=== PATIENT | female | born 1985 ===

== ENCOUNTER 2019-12-10 16:52 | Outpatient (REF) | payer SELFPAY | END 2019-12-10 16:53 | disposition home or self-care (01) | LOC: HO.LAB 16:52 | PROVIDERS: Visit Provider Internal Medicine | DX: Z20.828 Contact with and (suspected) exposure to other viral communicable diseases (principal) | CPT/HCPCS: 36415; 87635 ==

== ENCOUNTER 2020-03-31 16:24 | Outpatient (REF) | payer OTHER, SELFPAY | END 2020-03-31 16:25 | disposition home or self-care (01) | LOC: HO.LAB 16:24 | PROVIDERS: Visit Provider Internal Medicine | DX: Z20.822 Contact with and (suspected) exposure to COVID-19 (principal) | CPT/HCPCS: 36415; C9803; U0003 ==

== ENCOUNTER → 2022-03-18 09:58 | Outpatient (BNVA) | payer OTHER, SELFPAY | PROVIDERS: PCP Student in an Organized Health Care Education/Training Program; Visit Provider Psychiatry & Neurology Neurology | DX: G43.119 Migraine with aura, intractable, without status migrainosus (principal); G47.10 Hypersomnia, unspecified; M54.2 Cervicalgia; R06.83 Snoring | CPT/HCPCS: 99202 ==

== ENCOUNTER → 2022-04-01 13:56 | Outpatient (REF) | payer OTHER, SELFPAY | LOC: HO.SL 13:56 | PROVIDERS: Visit Provider Psychiatry & Neurology Neurology | DX: G47.10 Hypersomnia, unspecified (principal); R06.83 Snoring | CPT/HCPCS: 95806 ==

== ENCOUNTER 2022-04-20 16:04 | Outpatient (REF) | payer OTHER, SELFPAY ==
--- NOTE | ~2022-04-20 | MR_ITS ---
EXAMINATION: MRI OF THE BRAIN WITHOUT CONTRAST CLINICAL INFORMATION: 36-year-old with migraine with aura, intractable, without status migrainosus. COMPARISON: None. TECHNIQUE: Routine multiplanar, multisequence MR imaging of the brain was performed without IV contrast. FINDINGS: Brain Volume: Within normal limits within the limitations of qualitative assessment. Structural: Mild negative cisterna magna in the posterior fossa, normal variant. Brain and Meninges: DWI sequence demonstrates no restricted diffusion to suggest acute or subacute cerebral ischemia. The brain parenchyma is normal in morphology and signal intensity.?Stanley-white matter interface is preserved. No extra-axial fluid collections, space-occupying process or mass effect are identified. Gradient refocused imaging demonstrates no abnormal susceptibility-weighted signal loss to suggest hemorrhage, hemosiderin staining or abnormal mineralization. No extra-axial fluid collections, space-occupying process or mass effect. Ventricles and Subarachnoid Spaces: The ventricular system and subarachnoid spaces are within normal range; there is no hydrocephalus. Orbital Structures: The visualized orbital structures are grossly unremarkable within the limitations of the study. Vascular: Signal voids are noted in the visualized major intracranial vessels. Note is made of a 3 mm rounded signal void medial to the supraclinoid right internal carotid artery. Cannot exclude a small aneurysm at this location. Recommend MRA to further assess. Osseous Structures, Sinuses/Mastoids, Extracranial Soft Tissues: Unremarkable. MR/MR head/brain wo con IMPRESSION: 1. No acute intracranial process. No evidence for infarction, mass, extra-axial fluid collection, space-occupying process, mass effect or hydrocephalus and no definite brain parenchymal signal abnormalities. 2. Possible 3 mm right supraclinoid internal carotid artery aneurysm. Recommend MRA to further assess.
== END 2022-04-20 16:05 | disposition home or self-care (01) ==
LOC: HO.MRI 16:04
PROVIDERS: Visit Provider Nurse Practitioner Family
DX: G43.119 Migraine with aura, intractable, without status migrainosus (principal)
CPT/HCPCS: 70551

== ENCOUNTER → 2022-04-29 07:52 | Outpatient (BNVA) | payer OTHER, SELFPAY | PROVIDERS: Visit Provider Nurse Practitioner Family | DX: G43.119 Migraine with aura, intractable, without status migrainosus (principal); M54.2 Cervicalgia; G47.10 Hypersomnia, unspecified; R06.83 Snoring | CPT/HCPCS: 99212 ==

== ENCOUNTER → 2022-07-26 14:28 | Outpatient (BNVA) | payer OTHER, SELFPAY | PROVIDERS: Visit Provider Nurse Practitioner Family | DX: G47.10 Hypersomnia, unspecified (principal); R06.83 Snoring; G43.119 Migraine with aura, intractable, without status migrainosus; M54.2 Cervicalgia; Z79.899 Other long term (current) drug therapy | CPT/HCPCS: 99212 ==

== ENCOUNTER → 2022-10-01 21:28 | Outpatient (REF) | payer OTHER, SELFPAY | LOC: HO.SL 21:28 | PROVIDERS: Visit Provider Nurse Practitioner Family | DX: G43.119 Migraine with aura, intractable, without status migrainosus (principal); G47.10 Hypersomnia, unspecified; G47.9 Sleep disorder, unspecified; K21.9 Gastro-esophageal reflux disease without esophagitis; R06.83 Snoring | CPT/HCPCS: 95810 ==

== ENCOUNTER → 2022-10-01 21:34 | Outpatient (BNV) | payer OTHER, SELFPAY | PROVIDERS: Visit Provider Psychiatry & Neurology Neurology | DX: G47.9 Sleep disorder, unspecified (principal) | CPT/HCPCS: 95810 ==

== ENCOUNTER 2022-10-19 15:02 | Outpatient (REF) | payer OTHER, SELFPAY ==
--- NOTE | ~2022-10-19 | MR_ITS ---
EXAMINATION: MR ANGIOGRAPHY BRAIN WITHOUT CONTRAST CLINICAL INFORMATION: Question of a right internal carotid artery aneurysm. COMPARISON: Brain MRI dated 04/20/2022. TECHNIQUE: 3D yrqq-pt-gwmhbt MR angiography of the [place] acquired. Slightly limited study with motion artifacts. FINDINGS: The internal carotid arteries are normal in caliber bilaterally. 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 The [place] and MCA vasculature are normal. No aneurysm or vascular malformation is identified. The vertebrobasilar vessels are otherwise normal. The posterior cerebral arteries are widely patent. There is a new moderate right mastoid effusion partially visualized. MR/MR angio head wo con IMPRESSION: Slightly limited examination with motion artifacts. Otherwise, no identifiable aneurysm. 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 New moderate dependent right mastoid effusion.
== END 2022-10-19 15:03 | disposition home or self-care (01) ==
LOC: HO.MRI 15:02
PROVIDERS: PCP Nurse Practitioner Primary Care; Visit Provider Nurse Practitioner Family
DX: I67.1 Cerebral aneurysm, nonruptured (principal)
CPT/HCPCS: 70544

== ENCOUNTER 2022-11-11 15:01 | Outpatient (AMB) | payer MEDICAID, SELFPAY ==
--- NOTE | 2022-11-11 15:02 | MHC.OFFVIS ---
Intake Vital Signs 11/11/22 15:03 Height 5 ft 3 in Weight 132 lb 8 oz BMI 23.5 BP 110/78 Blood Pressure Location Rt brachial Position Sitting Pulse 76 Pulse Source Pulse Oximeter Pulse Oximetry (%) 99 Oxygen Delivery Method Room Air Intake Visit Reasons: 3 mo f/u Sleep disorder-Confirmed Intake Note: Patient presents for 3 month follow up. Patient states I did my EMG test I was informed that it was good but I had some fluid in my ear. Allergies No Known Allergies Allergy (Verified 07/26/22 14:33) Medication List - Last Reconciled 11/11/22 by BHARAT Caruso baclofen 10 mg PO BEDTIME shygprcxkn-wvcnsshytldxh-jqkz 50-300-40 mg (Fioricet) 1 cap PO ONCE PRN 90 days hydrocortisone 2.5% (Proctosol HC) topical magnesium oxide 400 mg PO BEDTIME omeprazole 20 mg PO DAILY riboflavin (vitamin B2) 400 mg PO DAILY 30 days topiramate 50 mg PO BID 30 days HPI HPI Comments History of Present Illness Details 37-yr-old female presents for f/u visit. Pt denies any significant interval medical changes. The headache is bifrontal a/w seeing colorful spots, photophobia, phonophobia, nausea, sometimes dizziness, tiredness. She is having approx 4-5 migraine attacks per month. The headache itself lasts about 2 hrs, but the entire attack lasts a few hours. She still needs to leave work for most every migraine attack. Her In-lab PSG was normal. 10/19/22: MR/MR angio head wo con IMPRESSION: Slightly limited examination with motion artifacts. Otherwise, no identifiable aneurysm. 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 New moderate dependent right mastoid effusion. [facility] Medical History (Updated 07/28/22 @ 08:53 by Esther Simons CNP) Hypersomnia Sleep disorder GERD (gastroesophageal reflux disease) Surgical History H/O adenoidectomy Family History Father Heart disease Sister Migraine Fibromyalgia Mother Diabetes Schizophrenia Neuropathy Asthma Social History Alcohol intake: current Alcohol intake frequency: holidays/special occasions only Patient Tobacco Use Status: Current someday Tobacco user Review of Systems Const All systems reviewed & are unremarkable except as noted in HPI and below Physical Exam Vital Signs: Last Vital Signs Pulse 76 11/11/22 15:03 BP 110/78 11/11/22 15:03 Pulse Ox 99 11/11/22 15:03 Oxygen Delivery Method Room Air 11/11/22 15:03 BMI result Body Mass Index 23.5 Const General: cooperative and no acute distress Orientation/consciousness: patient oriented x3 HEENT Head: Yes normocephalic Resp Effort & Inspection: normal respiratory effort and able to speak in complete sentences Neuro General: patient oriented x3, gait normal and CN's II-XI intact bilaterally Cognition (Neuro): normal cognition Motor exam (neuro): 5/5 motor strength present throughout Psych Appearance: grossly normal Mental Status: mental status grossly normal Speech and movement: Normal speech and movement present Affect: normal affect Attitude: cooperative Thought process: Normal thought process present Thought content: Normal thought content present Insight: Good insight present (Psych) Judgement: Good judgement present (Psych) Assessment & Plan Assessment & Plan (1) Migraine with aura, intractable, without status migrainosus: Code(s): G43.119 - Migraine with aura, intractable, without status migrainosus (2) Sleep disorder: Code(s): G47.9 - Sleep disorder, unspecified Plan Reviewed PSG- normal. Monitor sleep. Reviewed brain MRA- no aneurysm observed. For acute migraine tx: Continue Sumatriptan prn. May faraz Fioricet sparingingly prn For migraine prevention: Continue Riboflavin Continue Magnesium Continue Topiramate 50mg bid. Futuire considerations- increasing Topiramate or trying a BB f/u in 3 months or sooner prn Medications: New shwuznuqqd-nysrkdhtravjm-gfog 50-325-40 mg max 2 tabs per day or 4 tabs per week 1 tab PO Q4H 30 days PRN 20 tabs 2RF headache Discontinued lgilqhjspb-urjrqctwqzety-xmqs 50-300-40 mg (Fioricet) Discontinued Reason: Doctor's Order 1 cap PO ONCE 90 days PRN 14 caps 0RF pain Coding Level of Care Code Est Pt Level 4 (16408) Diagnoses Migraine with aura, intractable, without status migrainosus G43.119 Sleep disorder G47.9
[2022-11-11 15:03] VITALS: BP 110/78; PULSE 76; O2SAT 99; BMI 23.5
== END 2022-11-11 15:44 | disposition home or self-care (01) ==
PROVIDERS: Visit Provider Nurse Practitioner Family
DX: G43.119 Migraine with aura, intractable, without status migrainosus (principal); G47.9 Sleep disorder, unspecified
CPT/HCPCS: 99214

== ENCOUNTER → 2022-11-11 15:01 | Outpatient (BNVA) | payer OTHER, SELFPAY | PROVIDERS: Visit Provider Nurse Practitioner Family | DX: G43.119 Migraine with aura, intractable, without status migrainosus (principal); G47.9 Sleep disorder, unspecified | CPT/HCPCS: 99212 ==

== ENCOUNTER 2023-02-21 13:40 | Outpatient (AMB) | payer MEDICAID, SELFPAY ==
[2023-02-21 13:41] VITALS: BP 120/82; BMI 22.4
--- NOTE | 2023-02-21 13:41 | MHC.OFFVIS ---
Intake Vital Signs 02/21/23 13:41 Height 5 ft 3 in Weight 126 lb 6 oz BMI 22.4 BP 120/82 Blood Pressure Location Rt brachial Position Sitting Intake Visit Reasons: 3 mo f/u Sleep disorder-Confirmed Intake Note: Patient presents for 3 month follow up sleep disorder. I'm still having headaches but she gave me a pill to help and it has helped, but I've been getting some anxiety. Allergies No Known Allergies Allergy (Verified 02/21/23 13:44) Medication List - Last Reconciled 02/21/23 by BHARAT Caruso baclofen 10 mg PO BEDTIME ojrpwruilz-eomxbmvfdxzjp-ceqk 50-325-40 mg 1 tab PO Q4H PRN 30 days hydrocortisone 2.5% (Proctosol HC) topical magnesium oxide 400 mg PO BEDTIME omeprazole 20 mg PO DAILY riboflavin (vitamin B2) 400 mg PO DAILY 30 days sumatriptan succinate 50 - 100 mg orally at onset of headache, may repeat in 2 hrs PRN; max 2 tabs per day or 4 tabs/week (may take with Ibuprofen) 30 days topiramate 50 mg PO BID 30 days HPI HPI Comments History of Present Illness Details 37-yr-old female presents for f/u visit. Pt denies any significant interval medical changes. She reports she is having 4 migraine attacks per month, which respond well to Fioricet. Pt reports she is having more anxiety- she is having more episodes of anxiety- has 2 hour episodes of feeling anxious, hot, stressed. This occurs about 3 times per week. She also is feeling more depressed, less interested in her usual activities, being more prone gildardo ry. She notes she can have stress, family issues, etc. Possibly her mood is worse in the winter. In the past, she has tried Clonazepam which her mother gave her. She does not have a therapist or psychiatrist. She has never tried an anti-depressant before. [facility] Medical History (Updated 02/21/23 @ 16:08 by BHARAT Caruso) Hypersomnia Sleep disorder GERD (gastroesophageal reflux disease) Surgical History H/O adenoidectomy Family History Father Heart disease Sister Migraine Fibromyalgia Mother Diabetes Schizophrenia Neuropathy Asthma Social History Alcohol intake: current Alcohol intake frequency: holidays/special occasions only Patient Tobacco Use Status: Current someday Tobacco user Review of Systems Const All systems reviewed & are unremarkable except as noted in HPI and below Physical Exam Vital Signs: Last Vital Signs BP 120/82 02/21/23 13:41 BMI result Body Mass Index 22.4 Const General: cooperative and no acute distress Orientation/consciousness: patient oriented x3 HEENT Head: Yes normocephalic Resp Effort & Inspection: normal respiratory effort and able to speak in complete sentences Neuro General: patient oriented x3, gait normal and CN's II-XI intact bilaterally Cognition (Neuro): normal cognition Motor exam (neuro): 5/5 motor strength present throughout Psych Appearance: grossly normal Mental Status: mental status grossly normal Speech and movement: Normal speech and movement present Affect: normal affect Attitude: cooperative Thought process: Normal thought process present Thought content: Normal thought content present Insight: Good insight present (Psych) Judgement: Good judgement present (Psych) Assessment & Plan Assessment & Plan (1) Migraine with aura: Code(s): G43.109 - Migraine with aura, not intractable, without status migrainosus (2) Depression: Code(s): F32.A - Depression, unspecified (3) Anxiety: Code(s): F41.9 - Anxiety disorder, unspecified Plan For anxiety and depression- Check cbc, cmp, TSH, vit D, b12/folate- lab slips given to pt Start Escitalopram 5mg po qam- we will reach out to pt in 3-4 wks to check in on effect. ? For acute migraine tx: Continue Sumatriptan prn. May faraz Fioricet sparingly prn ? For migraine prevention: Continue Riboflavin Continue Magnesium Continue Topiramate 50mg bid. Futuire considerations- increasing Topiramate or trying a BB ? f/u in 3 months or sooner prn Orders: Orders Comprehensive Met. Panel Today F32.A - Depression, unspecified, F41.9 - Anxiety disorder, unspecified, R53.83 - Other fatigue TSH reflex Free T4 Today F32.A - Depression, unspecified, F41.9 - Anxiety disorder, unspecified, R53.83 - Other fatigue Vitamin B12 and Folate Today F32.A - Depression, unspecified, F41.9 - Anxiety disorder, unspecified, R53.83 - Other fatigue Vitamin D 25-OH (D2 and D3) Today F32.A - Depression, unspecified, F41.9 - Anxiety disorder, unspecified, R53.83 - Other fatigue Complete Blood Count Auto Diff Today F32.A - Depression, unspecified, F41.9 - Anxiety disorder, unspecified, R53.83 - Other fatigue Medications: New escitalopram oxalate 5 mg PO DAILY 30 days 30 tabs 3RF Refilled pumzrjresw-zcvjtukorfpre-zacf 50-325-40 mg max 2 tabs per day or 4 tabs per week 1 tab PO Q4H 30 days PRN 20 tabs 2RF headache Coding Level of Care Code Est Pt Level 4 (20170) Diagnoses Migraine with aura G43.109 Depression F32.A Anxiety F41.9
== END 2023-02-21 14:33 | disposition home or self-care (01) ==
PROVIDERS: Visit Provider Nurse Practitioner Family
DX: G43.109 Migraine with aura, not intractable, without status migrainosus (principal); F32.A Depression, unspecified; F41.9 Anxiety disorder, unspecified
CPT/HCPCS: 99214

== ENCOUNTER → 2023-02-21 13:40 | Outpatient (BNVA) | payer OTHER, SELFPAY | PROVIDERS: Visit Provider Nurse Practitioner Family | DX: G43.109 Migraine with aura, not intractable, without status migrainosus (principal); F32.A Depression, unspecified; F41.9 Anxiety disorder, unspecified | CPT/HCPCS: 99212 ==

== ENCOUNTER 2023-06-28 14:28 | Outpatient (AMB) | payer MEDICAID, SELFPAY ==
--- NOTE | 2023-06-28 14:45 | MHC.OFFVIS ---
Vital Signs 06/28/23 15:01 Height 5 ft 3 in Weight 136 lb BMI 24.1 BP 112/70 Blood Pressure Location Lt brachial Position Sitting Pulse 83 Pulse Source Pulse Oximeter Pulse Oximetry (%) 97 Oxygen Delivery Method Room Air Intake Visit Reasons: 4 mo f/u - Sleep disorder-LVM Intake Note: Patient presents for 4 months f/u. Wants to stop Amitriptylyne because is not working still feeling anxious. Would like to try something else for anxiety. Wants to stop Escitalopram because she started working in the morning and doesn't want to feel tired at work. Allergies No Known Allergies Allergy (Verified 06/28/23 15:00) Medication List - Last Reconciled 06/28/23 by BHARAT Caruso amitriptyline 10 - 20 mg (1 - 2 x 10 mg) PO BEDTIME 30 days baclofen 10 mg PO BEDTIME gbcavfascl-tprwpjcyosqqw-kgqu 50-325-40 mg 1 tab PO Q4H PRN 30 days cholecalciferol (vitamin D3) 10 mcg PO DAILY 30 days escitalopram oxalate 5 mg PO DAILY 30 days hydrocortisone 2.5% (Proctosol HC) topical magnesium oxide 400 mg PO BEDTIME omeprazole 20 mg PO DAILY riboflavin (vitamin B2) 400 mg PO DAILY 30 days sumatriptan succinate 50 - 100 mg orally at onset of headache, may repeat in 2 hrs PRN; max 2 tabs per day or 4 tabs/week (may take with Ibuprofen) 30 days topiramate 50 mg PO BID 30 days HPI Comments Details: 37-yr-old female presents for f/u visit. Pt denies any significant interval medical changes. Pt stopped Escitalopram- felt it was not helping. She then tried Amitriptyline 10-20mg qhs- but this caused excessive daytime sleepiness. Taking Topiramate 50mg qhs, not bid. She is still having anxiety. She is having 3 migraine attacks per week, although some weeks may not have any attacks. Fioricet and Sumatriptan helps. Baseline headache characteristics: Bifrontal a/w seeing colorful spots, photophobia, phonophobia, nausea, sometimes dizziness, tiredness. [facility] Medical History (Updated 02/21/23 @ 16:08 by BHARAT Caruso) Hypersomnia Sleep disorder GERD (gastroesophageal reflux disease) Surgical History H/O adenoidectomy Family History Father Heart disease Sister Migraine Fibromyalgia Mother Diabetes Schizophrenia Neuropathy Asthma Social History Alcohol intake: current Alcohol intake frequency: holidays/special occasions only Patient Tobacco Use Status: Current someday Tobacco user Physical Exam Vital Signs: Last Vital Signs Pulse 83 06/28/23 15:01 BP 112/70 06/28/23 15:01 Pulse Ox 97 06/28/23 15:01 Oxygen Delivery Method Room Air 06/28/23 15:01 BMI result Body Mass Index 24.1 Const General: cooperative and no acute distress Orientation/consciousness: patient oriented x3 Resp Effort & Inspection: normal respiratory effort and able to speak in complete sentences Neuro General: patient oriented x3 Cranial nerves: Yes CN's II-XII intact bilaterally Cognition (Neuro): normal cognition Psych Appearance: grossly normal Mental Status: mental status grossly normal Speech and movement: Normal speech and movement present Affect: normal affect Attitude: cooperative Assessment & Plan Assessment & Plan (1) Migraine with aura: Code(s): G43.109 - Migraine with aura, not intractable, without status migrainosus Category: Medical (2) Anxiety: Code(s): F41.9 - Anxiety disorder, unspecified Category: Medical (3) Depression: Code(s): F32.A - Depression, unspecified Category: Medical Plan For anxiety and depression- Reviewed cbc, cmp, TSH, vit D, b12/folate- WNL. Stopped Escitalopram 5mg po qam- not tolerated. Trial Venlafaxine 37.5mg qd- may help headcahe as well. ? For acute migraine tx: Continue Sumatriptan prn. May use Fioricet sparingly prn ? For migraine prevention: Continue Riboflavin Continue Magnesium Continue Topiramate 50mg qhs. Previous med tx: Amitriptyline 10-20mg qhs- not tolerated. Future considerations- increasing Topiramate or trying a BB ? f/u in 3 months or sooner prn Medications: New venlafaxine ER 37.5 mg PO DAILY 30 caps 3RF 30 days Changed From topiramate 50 mg PO BID 30 days 60 tabs 2RF To topiramate 50 mg orally qhs; 30 tabs 3RF 30 days Coding Level of Care Code Est Pt Level 4 (34339) Diagnoses Migraine with aura G43.109 Anxiety F41.9 Depression F32.A
[2023-06-28 15:01] VITALS: BP 112/70; PULSE 83; O2SAT 97; BMI 24.1
== END 2023-06-28 15:40 | disposition home or self-care (01) ==
PROVIDERS: Visit Provider Nurse Practitioner Family
DX: G43.109 Migraine with aura, not intractable, without status migrainosus (principal); F41.9 Anxiety disorder, unspecified; F32.A Depression, unspecified
CPT/HCPCS: 99214

== ENCOUNTER → 2023-06-28 14:28 | Outpatient (BNVA) | payer OTHER, SELFPAY | PROVIDERS: Visit Provider Nurse Practitioner Family | DX: G43.109 Migraine with aura, not intractable, without status migrainosus (principal); G47.9 Sleep disorder, unspecified; F41.9 Anxiety disorder, unspecified; F32.A Depression, unspecified | CPT/HCPCS: 99212 ==

== ENCOUNTER 2024-01-05 14:35 | Outpatient (AMB) | payer OTHER, SELFPAY ==
--- NOTE | 2024-01-05 14:46 | MHC.OFFVIS ---
Vital Signs 01/05/24 14:47 Height 5 ft 3 in Weight 138 lb BMI 24.4 Intake Visit Reasons: 6 month F/U Intake Note: Patient presents for follow up. patient still has headaches. Allergies No Known Allergies Allergy (Verified 01/05/24 14:48) Medication List - Last Reconciled 01/05/24 by BHARAT Caruso amitriptyline 10 - 20 mg (1 - 2 x 10 mg) PO BEDTIME 30 days baclofen 10 mg PO BEDTIME jucxvuzdhc-gfyqvjutiekjc-kcic 50-325-40 mg 1 tab PO Q4H PRN 30 days cholecalciferol (vitamin D3) 10 mcg PO DAILY 30 days galcanezumab-gnlm (Emgality Pen) 240 mg (2 mL) subcut ONCE 30 days hydrocortisone 2.5% (Proctosol HC) topical magnesium oxide 400 mg PO BEDTIME omeprazole 20 mg PO DAILY riboflavin (vitamin B2) 400 mg PO DAILY 30 days sumatriptan succinate 50 - 100 mg orally at onset of headache, may repeat in 2 hrs PRN; max 2 tabs per day or 4 tabs/week (may take with Ibuprofen) 30 days sumatriptan succinate 6 mg (0.5 mL) subcut ONCE PRN 30 days topiramate 50 mg orally qhs; 30 days venlafaxine ER 37.5 mg PO DAILY 30 days HPI Comments Details: 37-yr-old female presents for f/u visit for migraine. Pt denies any significant interval medical changes. She did have a f/u brain MRI through [facility] on 12/08/23, which was unremarkable. She is having 4 migraine attacks per week, although some weeks may not have any attacks. Fioricet and Sumatriptan helps, but she is running out. Usually sleeping ok if she does not have a headache. Fioricet helps her sleep during headache. Anxiety is better- can be nervous at times. She does endorse leg cramps and constipation/hemorrhoids. Pt states she is compliant w/ Amitriptyline 20mg, Topiramate 50mg qhs. Using Venlafaxien 37.5mg- but only when she is more anxious- but feels it helps. Baseline headache characteristics: Bifrontal a/w seeing colorful spots, photophobia, phonophobia, nausea, sometimes dizziness, tiredness. [facility] Medical History Hypersomnia Sleep disorder GERD (gastroesophageal reflux disease) Surgical History H/O adenoidectomy Family History Father Heart disease Sister Migraine Fibromyalgia Mother Diabetes Schizophrenia Neuropathy Asthma Social History Alcohol intake: current Alcohol intake frequency: holidays/special occasions only Patient Tobacco Use Status: Current someday Tobacco user Physical Exam Vital Signs: BMI result Body Mass Index 24.4 Const General: cooperative and no acute distress Orientation/consciousness: patient oriented x3 Resp Effort & Inspection: normal respiratory effort and able to speak in complete sentences Neuro General: patient oriented x3 Cranial nerves: Yes CN's II-XII intact bilaterally Cognition (Neuro): normal cognition Psych Appearance: grossly normal Mental Status: mental status grossly normal Speech and movement: Normal speech and movement present Affect: normal affect Attitude: cooperative Assessment & Plan Assessment & Plan (1) Migraine with aura: Code(s): G43.109 - Migraine with aura, not intractable, without status migrainosus Category: Medical (2) Anxiety: Code(s): F41.9 - Anxiety disorder, unspecified Category: Medical Plan For anxiety and depression- Continue Venlafaxine 37.5mg qd (ideally take qd)- may help headache as well. ? For acute migraine tx: Continue Sumatriptan 100mg tab, 1/2 - 1 tab (50-100mg) at onset of headache, may repeat in 2 hours. Max of 2 tabs (200mg) per 24 hours. May adjunct with OTC Tylenol 650mg q 4 hours, Ibuprofen 600mg q 6 hours, or Naproxen 440mg q 12 hrs prn. Trial Sumatriptan 6mg sc prn for severe migraine a/w nausea, MR x's 1 (max 12mg/day). May use Fioricet sparingly prn for rescue. ? For migraine prevention: Continue Riboflavin Continue Magnesium Continue Topiramate 50mg qhs- would not increase further d/t daytime tiredness. Continue Amitriptyline 20mg qhs for now. Once she starts Emgality- may stop this as she is having daytime tiredness. Start Emgality 120mg/ml auto-injection: Loading dose: 240mg (2 120mg/ml autoinjections) via subcutaneous injection in 2 different sites). Then in 30 days, start Maintenance dose 120mg (120mg/ml autoinjector) subcutaneous injection every month. Patient requests injection training once Emgality available. Important considerations: Emgality will likely require insurance prior authorization prior to receiving it from the pharmacy. Potential side effects include allergic reaction and injection site reactions. Store Emgality in it's original packaging in order to protect from light. Emgality can be left out of the fridge for?up to 7 days at a temperature not above 86?F. If these conditions are exceeded, then Emgality must be thrown away. Once Emgality has been stored out of refrigeration, do not place it back in the refrigerator. Previous med tx: Amitriptyline 10-20mg qhs- not tolerated and ineffective. Migraine tx contraindications: BBs or ant-HTN tx's d/t low BP, Aimovig or Qulipta d/t constipation, Nurtec/gepants d/t current fioricet use. ? f/u in 4-6 months or sooner prn Medications: New galcanezumab-gnlm (Emgality Pen) Loading dose: 120 mg subcu injection x2 in alternate sites (total 240 mg). To be followed by maintenance dose of 120 mg subcu q.month. 240 mg (2 mL) subcut ONCE 2 mL 0RF 30 days G43.109 - Migraine with aura, not intractable, without status migrainosus sumatriptan succinate may repeat in 1 hr (max 12mg per day) 6 mg (0.5 mL) subcut ONCE PRN 4 mL 6RF severe migraine 30 days Changed From topiramate 50 mg orally qhs; 30 days 30 tabs 3RF To topiramate 50 mg orally qhs; 30 tabs 3RF 30 days Refilled riboflavin (vitamin B2) 400 mg PO DAILY 30 tabs 6RF 30 days venlafaxine ER 37.5 mg PO DAILY 30 caps 3RF 30 days ghlorazscr-vyfcvbtcpjlzf-znmr 50-325-40 mg max 2 tabs per day or 4 tabs per week 1 tab PO Q4H PRN 25 tabs 2RF headache 30 days magnesium oxide 400 mg PO BEDTIME 30 tabs 6RF Discontinued escitalopram oxalate Discontinued Reason: Patient no longer taking 5 mg PO DAILY 30 days 30 tabs 3RF Coding Level of Care Code Est Pt Level 4 (79898) Diagnoses Migraine with aura G43.109 Anxiety F41.9
[2024-01-05 14:47] VITALS: BMI 24.4
== END 2024-01-05 15:18 | disposition home or self-care (01) ==
LOC: HO.HSMS 14:35
PROVIDERS: Visit Provider Nurse Practitioner Family
DX: G43.109 Migraine with aura, not intractable, without status migrainosus (principal); F41.9 Anxiety disorder, unspecified
CPT/HCPCS: 99214

== ENCOUNTER → 2024-01-05 14:35 | Outpatient (BNVA) | payer MEDICAID, SELFPAY | PROVIDERS: Visit Provider Nurse Practitioner Family | DX: G43.109 Migraine with aura, not intractable, without status migrainosus (principal); F41.9 Anxiety disorder, unspecified | CPT/HCPCS: 99212 ==

== ENCOUNTER 2024-07-12 15:00 | Outpatient (AMB) | payer OTHER, SELFPAY ==
--- NOTE | 2024-07-12 15:27 | MHC.OFFVIS ---
Vital Signs 07/12/24 15:32 Height 53 ft BP 130/80 Blood Pressure Location Rt brachial Position Sitting Pulse 80 Pulse Source Pulse Oximeter Pulse Oximetry (%) 96 Oxygen Delivery Method Room Air Intake Visit Reasons: Follow up Allergies No Known Allergies Allergy (Verified 07/12/24 15:29) [facility] Medical History Hypersomnia Sleep disorder GERD (gastroesophageal reflux disease) Surgical History H/O adenoidectomy Family History Father Heart disease Sister Migraine Fibromyalgia Mother Diabetes Schizophrenia Neuropathy Asthma Social History Alcohol intake: current Alcohol intake frequency: holidays/special occasions only Patient Tobacco Use Status: Current someday Tobacco user Coding
[2024-07-12 15:32] VITALS: BP 130/80; PULSE 80; O2SAT 96
--- OUTSIDE RECORDS SUMMARY | 2024-07-12 15:33 | XMS_ITS | Clinical Summary ---
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 10/28/2023 Active predniSONE (DELTASONE) 20 mg tablet Take 60 mg PO daily for 3 days, then take 40 mg PO daily for 3 days, then 20 mg PO daily for 3 days, then stop 18 tablet 06/05/2024 Active triamcinolone (KENALOG) 0.1 % cream Apply to affected area 1-2 times daily as needed for 2 weeks 15 g 06/05/2024 08/05/19 25 Active Active Problems Problem Noted Date Diagnosed Date Facial rash 06/05/2024 Pruritus 06/05/2024 History of herpes simplex infection 06/05/2024 Chronic pain of both lower extremities Erythrocytosis 10/28/2023 Herpes simplex antibody positive 10/28/2023 Hemorrhoids 10/11/2023 Migraine without status migrainosus, not intract able 12/24/2021 Gastroesophageal reflux dise ase with esophagitis without hemorrhage 10/14/2021 Encounters Date Type Department Care Team Description 06/05/2024 8:30 AM EDT Office Visit Adult Medicine [address] [phone] Alcon Meza MD Facial rash (Primary Dx); Family history of arthritis; Pruritus; History of herpes simplex infection; Other migraine without status migrainosus, not intractable 06/04/2024 Telephone Adult Medicine [facility] [address], [place] [phone] Alcon Meza MD feeling unwell from Last 3 Months Immunizations Name Administration Dates Next Due Influenza Quadravalent, MDCK , 0.5ml, preservative free (Flucelvax) 6mo and older 02/16/2022 Moderna SARS-CoV-2 COVID-19, mRNA, LNP-S, preservative free 09/23/2020,08/25/2020 Social History Tobacco Use Types Packs/Day Years Used Date Smoking Tobacco: Every Day Tobacco Cessation:Ready to Q uit: Not Asked; Counseling Given: Not Answered Alcohol Use Standard Drinks/Week Comments Not Currently 0 (1 standard drink = 0.6 oz pur e alcohol) Comments Unknown Sex and Gender Information Value Date Recorded Sex Assigned at Not on file Legal Sex Female 5:07 PM EST Gender Identity Not on file Sexual Orientation Not on file Obstetrics History Last Filed Vital Signs Vital Sign Reading Time Taken Comments Blood Pressure 128/70 06/05/2024 8:40 AM EDT Pulse 80 06/05/2024 8:40 AM EDT Temperature 36.6 ??C (97.8 ??F) 06/05/2024 8:40 AM ED T Respiratory Rate 16 06/05/2024 8:40 AM EDT Oxygen Saturation - - Inhaled Oxygen Concentration - - Weight 59.4 kg (131 lb) 06/05/2024 8:40 AM EDT Height 160 cm (5' 3 ) 06/05/2024 8:40 AM EDT Body Mass Index 23.21 06/05/2024 8:40 AM EDT Plan of Treatment Upcoming Encounters Date Type Department Care Team (Late st Contact Info) Description 09/26/2024 1:30 PM EDT Office Visit Adult Medicine [facility] [address], [place] [phone] Alcon Meza MD [address], [place] 10/03/2024 1:30 PM EDT Office Visit [place]st[place]s [place] [facility] [place] [address] [place] [phone] Katy Zuniga, [facility] [address] [place] [address] Health Maintenance Due Date Last Done Comments DTaP,Tdap,and Td Vaccines (1 - Tdap) 07/21/2003 Hepatitis B Vaccines (1 of 3 - 19+ 3-dose series) 07/21/2003 Pneumococcal Vaccine: Pediatrics (0 to 5 Years) and At-Risk Patients (6 to 64 Years) (1 of 2 - PCV) 07/21/2003 COVID-19 Vaccine (3 - Modern a risk series) 10/21/2020 09/23/2020, 08/25/2020 Cholesterol Screening (Lipid Panel) 02/14/2022 Depression Screening 02/14/2022 HIV Screening 02/14/2022 Hepatitis C Screening 02/14/2022 Social Influencers of Health Screening 02/14/2022 Influenza Vaccine (Season Ended) 2024 02/16/2022 Cervical Cancer Screening: P ap Smear 02/09/2025 02/09/2022 HIB Vaccines Aged Out No longer eligi ble based on patient's age to complete this topic HPV Vaccines Aged Out No longer eligi ble based on patient's age to complete this topic Hepatitis A Vaccines Aged Out No long er eligible based on patient's age to complete this topic IPV Vaccines Aged Out No longer eligi ble based on patient's age to complete this topic MMR Vaccines Aged Out No longer eligi ble based on patient's age to complete this topic Meningococcal ACWY Vaccine Aged Out N o longer eligible based on patient's age to complete this topic Meningococcal B Vaccine Aged Out No l onger eligible based on patient's age to complete this topic RSV Immunization Patients Under 20 months Aged Out No longer eligible b ased on patient's age to complete this topic Varicella Vaccines Aged Out No longer eligible based on patient's age to complete this topic Procedures Procedure Name Priority Date/Time Associated Diagnosis Comments CECE IFA WITH TITER AND PATTERN Routine 06/05/2024 10:13 AM EDT Facial rash Family history of arthritis PAP SMEAR Routine 02/09/2022 from Last 3 Months or Most Recently Relevant to Health Maintenance Results * CECE IFA with titer and pattern (06/05/2024 10:13 AM EDT) CECE Negative Negative 06/06/2024 2:03 PM EDT [facility] Blood Venous blood specimen / Unknown Venipuncture / Unknown 06/05/2024 10:13 AM EDT 06/05/2024 10:13 AM EDT us Alcon Meza MD LAB BLOOD ORDERABLES Final Result [facility] [address] [place] [address], [place] [phone] * Pap smear (02/09/2022) 02/09/2022 Narrative HISTORICAL TESTING LAB RESULTING AGENCY - 02/11/2022 2:35 PM EST [id number] THINPREP PAP, IMAGED: NEGATIVE FOR SQUAMOUS INTRAEPITHELIAL LESION AND MALIGNANCY . SHIFT IN LUL, SUGGESTIVE OF BACTERIAL VAGINOSIS. VELVET ERICKSON(ASCP) (CASE ELECTRONICALLY SIGNED 02 11 2022) RESULT OF APTIMA HIGH RISK HPV ASSAY: HIGH RISK HPV: ??NEGATIVE (SEROTYPES 16,18,31,33,35,39,45,51,52,56,58,59,66,68) COMPLETED ON 2022-02-10 ADEQUACY: SATISFACTORY ENDOCERVICAL/TRANSFORMATION ZONE COMPONENT PRESENT. SOURCE: THINPREP PAP HPV ANY DX: ??REFLEX 16 AND 18, CERVICAL, IMAGED CLINICAL INFORMATION: HPV ANY DIAGNOSIS. HORMONES, PAP HX NEGATIVE, [Z12.4] us Daysi Guajardo CNM LAB CYTOLOGY ORDERABLES Final Result HISTORICAL TESTING LAB RESULTING AGENCY from Last 3 Months or Most Recently Relevant to Health Maintenance Insurance [facility] [employer] Care Teams Grout Machine Operator Relationship Specialty Start Date End Date Alcon Meza MD [address] [place] [id number] PCP - General 10/10/23
--- NOTE | 2024-07-12 15:39 | MHC.OFFVIS ---
Vital Signs 07/12/24 15:32 Height 53 ft Weight 134 lb BMI 0.2 BP 130/80 Blood Pressure Location Rt brachial Position Sitting Pulse 80 Pulse Source Pulse Oximeter Pulse Oximetry (%) 96 Oxygen Delivery Method Room Air Intake Visit Reasons: Follow up Allergies No Known Allergies Allergy (Verified 07/12/24 15:29) Medication List - Last Reconciled 07/12/24 by BHARAT Caruso fkrmnczwhs-btihcujkesylo-wnwh 50-325-40 mg 1 tab PO Q4H PRN 30 days cholecalciferol (vitamin D3) 10 mcg PO DAILY 30 days galcanezumab-gnlm (Emgality Pen) 240 mg (2 mL) subcut ONCE 30 days hydrocortisone 2.5% (Proctosol HC) topical magnesium oxide 400 mg PO BEDTIME 90 days melatonin 1 - 3 mg (1 - 3 x 1 mg) PO BEDTIME PRN 30 days omeprazole 20 mg PO DAILY riboflavin (vitamin B2) 400 mg PO DAILY 90 days sumatriptan succinate 50 - 100 mg orally at onset of headache, may repeat in 2 hrs PRN; max 2 tabs per day or 4 tabs/week (may take with Ibuprofen) 30 days HPI Comments Details: 38-yr-old female presents for f/u visit for migraine. Pt denies any significant interval medical changes. Patient states her migraine attacks have been better. Thus, she would like to decrease her medication burden- to just B2, Mag, and Sumatriptan, and Fioricet. She was wary to try Emgality- d/t anxiety r/t injections. And states she has stopped w/ Amitriptyline 20mg, Topiramate 50mg qhs. Using Venlafaxien 37.5mg- but only when she is more anxious- but feels it helps. She is having 3 migraine attacks per week, although some weeks may not have any attacks. Fioricet and Sumatriptan usually helps, but uses Fioricet only when the sumatripatn is not fully effective. Usually sleeping well, but may wake up at times. Headache may interfere with sleep- Fioricet helps her sleep during headache. Anxiety is better- can be nervous at times. Baseline headache characteristics: Bifrontal a/w seeing colorful spots, photophobia, phonophobia, nausea, sometimes dizziness, tiredness. [facility] Medical History Hypersomnia Sleep disorder GERD (gastroesophageal reflux disease) Surgical History H/O adenoidectomy Family History Father Heart disease Sister Migraine Fibromyalgia Mother Diabetes Schizophrenia Neuropathy Asthma Social History Alcohol intake: current Alcohol intake frequency: holidays/special occasions only Patient Tobacco Use Status: Current someday Tobacco user Physical Exam Vital Signs: Last Vital Signs Pulse 80 07/12/24 15:32 BP 130/80 07/12/24 15:32 Pulse Ox 96 07/12/24 15:32 Oxygen Delivery Method Room Air 07/12/24 15:32 BMI result Body Mass Index 0.2 Const General: cooperative and no acute distress Orientation/consciousness: patient oriented x3 Resp Effort & Inspection: normal respiratory effort and able to speak in complete sentences Neuro General: patient oriented x3 Cranial nerves: Yes CN's II-XII intact bilaterally Cognition (Neuro): normal cognition Psych Appearance: grossly normal Mental Status: mental status grossly normal Speech and movement: Normal speech and movement present Affect: normal affect Attitude: cooperative Assessment & Plan Assessment & Plan (1) Migraine with aura: Code(s): G43.109 - Migraine with aura, not intractable, without status migrainosus Category: Medical Qualifiers: Intractability: not intractable Status migrainosus presence: without status migrainosus Qualified Code(s): G43.109 - Migraine with aura, not intractable, without status migrainosus (2) Anxiety: Code(s): F41.9 - Anxiety disorder, unspecified Category: Medical Plan For anxiety and depression- Patient reports she has stopped Venlafaxine 37.5mg qd order. Monitor clinically. ? For acute migraine tx: Continue Sumatriptan 100mg tab, 1/2 - 1 tab (50-100mg) at onset of headache, may repeat in 2 hours. Max of 2 tabs (200mg) per 24 hours. May adjunct with OTC Tylenol 650mg q 4 hours, Ibuprofen 600mg q 6 hours, or Naproxen 440mg q 12 hrs prn. May use Fioricet sparingly prn for rescue. 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 ? For migraine prevention: Continue Riboflavin Continue Magnesium Discontinue Topiramate 50mg qhs- as patient has stopped it Discontinue Amitriptyline 20mg qhs- S patient has stopped it Discontinue Emgality order- as patient did not started due to needle phobia. Advised that if she again develops migraine attacks greater than 4 days per week, she should reach out to us, so we can consider alternate migraine preventive treatment options Previous med tx: Amitriptyline 10-20mg qhs- not tolerated and ineffective. Topiramate 50 mg q.h.s. times months- patient states poor tolerance. Migraine tx contraindications: BBs or ant-HTN tx's d/t low BP, Aimovig or Qulipta d/t constipation, Nurtec/gepants d/t current fioricet use. Future considerations: Atogepant- being mindful of risk for constipation ? f/u in 6 months or sooner prn Medications: New melatonin 1 - 3 mg (1 - 3 x 1 mg) PO BEDTIME PRN 90 tabs 6RF sleep 30 days Changed From magnesium oxide 400 mg PO BEDTIME 30 tabs 6RF To magnesium oxide 400 mg PO BEDTIME 90 tabs 3RF 90 days From riboflavin (vitamin B2) 400 mg PO DAILY 30 days 30 tabs 6RF To riboflavin (vitamin B2) 400 mg PO DAILY 90 tabs 3RF 90 days Refilled sumatriptan succinate 50 - 100 mg orally at onset of headache, may repeat in 2 hrs PRN; max 2 tabs per day or 4 tabs/week (may take with Ibuprofen) 12 tabs 6RF migraine headache 30 days vepymojzbo-wcgqaontfyxub-eeul 50-325-40 mg max 2 tabs per day or 4 tabs per week 1 tab PO Q4H PRN 25 tabs 3RF headache 30 days Discontinued baclofen Discontinued Reason: Doctor's Order 10 mg PO BEDTIME 30 tabs 1RF amitriptyline Discontinued Reason: Doctor's Order 10 - 20 mg (1 - 2 x 10 mg) PO BEDTIME 30 days 60 tabs 6RF sumatriptan succinate may repeat in 1 hr (max 12mg per day) Discontinued Reason: Doctor's Order 6 mg (0.5 mL) subcut ONCE 30 days PRN 4 mL 6RF severe migraine galcanezumab-gnlm (Emgality Pen) Loading dose: 120 mg subcu injection x2 in alternate sites (total 240 mg). To be followed by maintenance dose of 120 mg subcu q.month. Discontinued Reason: Doctor's Order 240 mg (2 mL) subcut ONCE 30 days 1 mL 6RF G43.109 - Migraine with aura, not intractable, without status migrainosus topiramate Discontinued Reason: Duplicate 50 mg orally qhs; 30 days 30 tabs 3RF venlafaxine ER Discontinued Reason: Doctor's Order 37.5 mg PO DAILY 30 days 30 caps 3RF Coding Level of Care Code Est Pt Level 4 (22569) Diagnoses Migraine with aura and without status migrainosus, not intractable G43.109 Intractability: not intractable Status migrainosus presence: without status migrainosus Anxiety F41.9
== END 2024-07-12 15:57 | disposition home or self-care (01) ==
LOC: HO.HSMS 15:00
PROVIDERS: Visit Provider Nurse Practitioner Family
DX: G43.109 Migraine with aura, not intractable, without status migrainosus (principal); F41.9 Anxiety disorder, unspecified
CPT/HCPCS: 99214